=== PATIENT | male | born 1995 | race Caucasian/White ===

== ENCOUNTER 2016-06-27 01:45 | Emergency (ER) | payer MEDICAID ==
[~2016-06-27] VITALS: Ht 185.4 cm; Wt 76.2 kg
[2016-06-27 01:46] VITALS: BP 127/87
[2016-06-27] MEDS ORDERED: HYDROcodone/APAP 5/325 TABLET ONE (02:14)
[2016-06-27] MEDS ORDERED: ONDANSETRON ODT 4 MG ONE (02:14)
[2016-06-27] MEDS ORDERED: KETOROLAC 30 MG/1 ML ONE (02:14)
[2016-06-27] MEDS ORDERED: KETOROLAC 30 MG/1 ML IM ONE (02:30)
[2016-06-27] MEDS ORDERED: ONDANSETRON ODT 4 MG PO ONE (02:30)
[2016-06-27] MEDS ORDERED: HYDROcodone/APAP 5/325 TABLET PO ONE (02:30)
== END 2016-06-27 03:21 | disposition home or self-care (01) ==
LOC: ED 03:19
DX: S69.92XA Unspecified injury of left wrist, hand and finger(s), initial encounter (principal); X58.XXXA Exposure to other specified factors, initial encounter; Y93.61 Activity, american tackle football; Y99.8 Other external cause status; Y92.321 Football field as the place of occurrence of the external cause
CPT/HCPCS: 29130; 73130; 96372; 99284; J1885; Q0162

== ENCOUNTER 2016-08-07 23:52 | Emergency (ER) | payer MEDICAID ==
[~2016-08-07] VITALS: Ht 185.4 cm; Wt 76.7 kg
[2016-08-07 23:54] VITALS: BP 118/77
== END 2016-08-08 01:36 | disposition left against medical advice (07) ==
LOC: ED 23:59
DX: M54.9 Dorsalgia, unspecified (principal); Z53.21 Procedure and treatment not carried out due to patient leaving prior to being seen by health care provider

== ENCOUNTER 2017-03-22 18:08 | Emergency (ER) | payer MEDICAID ==
[~2017-03-22] VITALS: Ht 185.4 cm; Wt 77.7 kg
[2017-03-22 18:10] VITALS: BP 124/72
[2017-03-22] MEDS ORDERED: HYDROmorphone 1 MG/ML, 1ML IVPush PRN (19:30)
[2017-03-22] MEDS ORDERED: HYDROmorphone 2 MG/ML, 1ML ONE (20:08)
== END 2017-03-22 20:49 | disposition home or self-care (01) ==
LOC: ED 19:00
DX: S39.011A Strain of muscle, fascia and tendon of abdomen, initial encounter (principal); X58.XXXA Exposure to other specified factors, initial encounter; Y93.89 Activity, other specified; Y99.8 Other external cause status; Y92.89 Other specified places as the place of occurrence of the external cause
CPT/HCPCS: 76870; 96374; 99284; J1170

== ENCOUNTER 2017-04-13 20:10 | Emergency (ER) | payer MEDICAID ==
[~2017-04-13] VITALS: Ht 185.4 cm; Wt 76.7 kg
[2017-04-13] MEDS ORDERED: IBUPROFEN 200 MG TABLET ONE (21:00)
[2017-04-13] MEDS ORDERED: IBUPROFEN 200 MG TABLET PO ONE (21:00)
[2017-04-13 22:09] VITALS: BP 128/60
[2017-04-13] MEDS ORDERED: BACITRACIN ZINC OINT 500U/GM, 0.9 GM ONE (22:29)
[2017-04-13] MEDS ORDERED: LIDOCAINE-MPF 1%, 5ML INFIL ONE (22:30)
== END 2017-04-13 23:09 | disposition home or self-care (01) ==
LOC: ED 22:02
DX: S60.151A Contusion of right little finger with damage to nail, initial encounter (principal); S60.222A Contusion of left hand, initial encounter; S90.222A Contusion of left lesser toe(s) with damage to nail, initial encounter; W23.0XXA Caught, crushed, jammed, or pinched between moving objects, initial encounter; Y93.89 Activity, other specified; Y92.098 Other place in other non-institutional residence as the place of occurrence of the external cause; Y99.8 Other external cause status
CPT/HCPCS: 11730; 99284